=== PATIENT | female | born 1930 | race Caucasian/White ===

== ENCOUNTER → 2017-02-19 | Outpatient (CLI) | payer MEDICARE | END | disposition home or self-care (01) | LOC: LAB 16:16 | PROVIDERS: ATTEND Family Medicine | DX: E46 Unspecified protein-calorie malnutrition (principal); M72.6 Necrotizing fasciitis | CPT/HCPCS: 87045 ==

== ENCOUNTER → 2017-03-26 | Outpatient (CLI) | payer MEDICARE | END | disposition home or self-care (01) | LOC: LAB 16:25 | PROVIDERS: ATTEND Family Medicine | DX: L08.9 Local infection of the skin and subcutaneous tissue, unspecified (principal) | CPT/HCPCS: 87070 ==

== ENCOUNTER → 2017-10-16 | Outpatient (CLI) | payer MEDICARE ==
[2017-10-16 12:11] LABS: HEMOGLOBIN 13.3 g/dL (12.0-15.0); MEAN CELL HGB CONCENTRATION 29.5 g/dL (33-37); MEAN CORP VOLUME 88.3 fL (78-100); MEAN PLATELET VOLUME 10.9 fL (7.8-11.0); WHITE BLOOD CELL 4.5 10^3/uL (4.5-11.0)
== END | disposition home or self-care (01) ==
LOC: LAB 11:51
PROVIDERS: ATTEND Family Medicine
DX: R53.1 Weakness (principal)
CPT/HCPCS: 85027